=== PATIENT | female | born 1930 | race Caucasian/White ===

== ENCOUNTER → 2017-01-16 | Outpatient (REF) | payer MEDICARE, BC ==
[~2017-01-16] MED LIST: AMLO5TAB2 PO; ASPI81CH PO; ATOR40TA PO; CALCTAB93 PO; CINN1CAP2 PO; CYAN25TA PO; DONETAB6 PO; FLAX10005 PO; LIPI20TA PO; LOPE2CA PO; LOSA100T36 PO; MELA3TAB21 PO; MULTCAP PO; NATU400T PO; PROA1AER IN; SERT50TA PO; VITA100041 PO; [UNRECOGNIZED DRUG - OTHER]
== END ==
LOC: M LAB REF 16:44
PROVIDERS: ATTEND Nurse Practitioner Adult Health
DX: M35.3 Polymyalgia rheumatica (principal)